=== PATIENT | female | born 1990 | race American Indian/Alaskan Native ===

== ENCOUNTER 2020-04-12 09:33 | Inpatient (IN) | payer MEDICAID, OTHER ==
[2020-04-12] MEDS ORDERED: SODIUM CHLORIDE 0.9% 1000 ML 1,000 ML IV ONE ×2 (11:22→14:34)
[2020-04-12] MEDS ORDERED: MORPHINE 4 MG/1 ML INJ IV ONE (11:22)
[2020-04-12] MEDS ORDERED: ONDANSETRON 4 MG/2 ML INJ IV ONE (11:22)
[2020-04-12 13:09] LABS: Basophils % (Auto) 0.2 % (0.0-1.8); Hematocrit 40.1 % (30.3-42.9); Hemoglobin 13.1 gm/dl (10.1-14.3); Lymphocytes # (Auto) 1.1 K/mm3 (1.2-5.4); Lymphocytes % (Auto) 10.1 % (13.4-35.0); Mean Corpuscular HGB Conc 33 % (30-34); Mean Corpuscular Volume 93 fl (79-97); Monocytes # (Auto) 0.4 K/mm3 (0.0-0.8); Monocytes % (Auto) 3.8 % (0.0-7.3); Platelet Count 275 K/mm3 (140-440); Red Cell Distribution Width 14.6 % (13.2-15.2)
[2020-04-12 14:21] LABS: Alanine Aminotransferase 25 units/L (7-56); Albumin 4.2 g/dL (3.9-5); Blood Urea Nitrogen 7 mg/dL (7-17); Calcium 9.6 mg/dL (8.4-10.2); Hemolysis Index 67
[2020-04-12 14:22] LABS: BUN/Creatinine Ratio 12
[2020-04-12] MEDS ORDERED: INSULIN REGULAR, HUMAN 100 UNIT/ML 3ML VIAL IV ONE ×2 (14:28→15:14)
[2020-04-12] MEDS ORDERED: HYDROmorphone 1 MG/1 ML INJ IV ONE ×3 (14:34→18:31)
--- NOTE | 2020-04-12 16:13 | Cat Scan Report ---
CT ABDOMEN AND PELVIS WITHOUT CONTRAST INDICATION / CLINICAL INFORMATION: abd pain, n/v. TECHNIQUE: Axial CT images were obtained through the abdomen and pelvis without IV contrast. All CT scans at [facility] location are performed using CT dose reduction for ALARA by means of automated exposure control. COMPARISON: None available. FINDINGS: LOWER CHEST: No significant abnormality. HEPATOBILIARY: No significant abnormality. PANCREAS: No significant abnormality. SPLEEN: 2.1 cm hypoattenuating focus with attenuation greater than expected for simple cyst. ADRENALS: No significant abnormality. GENITOURINARY: Contrast excretion from prior examination throughout the genitourinary system. No sign ificant abnormality. GASTROINTESTINAL/MESENTERY: Appendix is poorly visualized, however there is no significant pericecal inflammatory change to suggest acute appendicitis. Mild diffuse thickening of the proximal colon from the hepatic flexure to the mid transverse colon possibly representing mild colitis. No obstruction. No free air or significant free fluid. RETROPERITONEUM: No significant adenopathy. REPRODUCTIVE ORGANS: 3.3 cm cystic left adnexal lesion adjacent to the ovary with attenuation slightl y greater than expected for a simple cyst. VASCULAR: No significant abnormality. SKELETAL SYSTEM: No significant abnormality. ADDITIONAL FINDINGS: No significant abnormality. IMPRESSION: 1. Mild diffuse thickening of the proximal colon from the hepatic flexure to the mid transverse colon which can be seen in the setting of mild colitis. Recommend clinical correlation and further follow- up as warranted. 2. 2.1 cm hypoattenuating focus in the spleen which is slightly greater in attenuation than a simple cyst. Consider further evaluation with ultrasound. 3. 3.3 cm cystic left adnexal lesion with attenuation greater than expected for simple cyst. Recommen d further evaluation with pelvic ultrasound. Signer Name: Dragan Arguello MD Signed: 04/12/2020 4:08 PM Workstation Name: [id number]
[2020-04-12] MEDS ORDERED: metroNIDAZOLE/NS 500 MG/100 ML 500 MG/100 ML BAG IV ONE (16:33)
--- NOTE | 2020-04-12 16:45 | Emergency Department Report ---
ED Abdominal Pain HPI - General Chief Complaint: Abdominal Pain Stated Complaint: SHARP PAINS Time Seen by Provider: 04/12/20 11:10 Source: patient Mode of arrival: Ambulatory Limitations: Language Barrier - History of Present Illness Initial Comments: Patient is a 29-year-old female presents emergency room with complaints of lower abdominal pain that began yesterday. She states that she began to have constant nausea and vomiting earlier today. she states she is unable to tolerate PO intake. She denies any fever, diarrhea, dysuria, urinary symptoms, hematochezia, hematemesis, melena. She denies any sick contacts or recent travel. She states that she has a past medical history of endometriosis and type 1 diabetes. She states her last menstrual cycle was March 24. She denies any allergies to medications. Severity scale (0 -10): 5 - Related Data Allergies Allergy/AdvReac Type Severity Reaction Status Date / Time No Known Allergies Allergy Unverified 04/12/20 09:55 ED Review of Systems ROS: Stated complaint: SHARP PAINS Other details as noted in HPI Comment: All other systems reviewed and negative ED Past Medical Hx - Surgical History Hx Cholecystectomy: Yes Additional Surgical History: C SECTION/ HERNIA - Social History Smoking Status: Never Smoker Substance Use Type: Non Opiate Pain ED Physical Exam - General Limitations: Language Barrier General appearance: alert, in no apparent distress - Head Head exam: Present: atraumatic, normocephalic - Eye Eye exam: Present: normal appearance - ENT ENT exam: Present: mucous membranes moist - Respiratory Respiratory exam: Present: normal lung sounds bilaterally. Absent: respiratory distress, wheezes, rales, rhonchi, stridor, chest wall tenderness, accessory muscle use, decreased breath sounds, prolonged expiratory - Cardiovascular Cardiovascular Exam: Present: regular rate, normal rhythm, normal heart sounds. Absent: systolic murmur, diastolic murmur, rubs, gallop - GI/Abdominal GI/Abdominal exam: Present: soft, tenderness (lower abdominal generalized), no rmal bowel sounds. Absent: distended, guarding, rebound, rigid - Neurological Exam Neurological exam: Present: alert, oriented X3 - Psychiatric Psychiatric exam: Present: normal affect, normal mood - Skin Skin exam: Present: warm, dry, intact ED Course Vital Signs 04/12/20 04/12/20 04/12/20 09:44 11:59 16:00 Temperature 98.1 F 98.1 F Pulse Rate 122 H 86 Respiratory 20 18 16 Rate Blood Pressure 177/124 Blood Pressure 131/86 [Left] O2 Sat by Pulse 99 100 Oximetry - Consultations Consultation #1: 04/12/20 16:[address] Newton, hospitalist who will accept and resume care of patient, will admit patient to hospitalist service ED Medical Decision Making - Lab Data Result diagrams: 04/12/20 12:07 04/12/20 12:07 Lab Results 04/12/20 04/12/20 04/12/20 Range/Units 12:07 12:07 12:07 WBC 11.1 H (4.5-11.0) K/mm3 RBC 4.30 (3.65-5.03) M/mm3 Hgb 13.1 (10.1-14.3) gm/dl Hct 40.1 (30.3-42.9) % MCV 93 (79-97) fl MCH 31 (28-32) pg MCHC 33 (30-34) % RDW 14.6 (13.2-15.2) % Plt Count 275 (140-440) K/mm3 Lymph % (Auto) 10.1 L (13.4-35.0) % [place] % (Auto) 3.8 (0.0-7.3) % Eos % (Auto) 0.0 (0.0-4.3) % Baso % (Auto) 0.2 (0.0-1.8) % Lymph # 1.1 L (1.2-5.4) K/mm3 [place] # 0.4 (0.0-0.8) K/mm3 Eos # 0.0 (0.0-0.4) K/mm3 Baso # 0.0 (0.0-0.1) K/mm3 Seg Neutrophils % 85.9 H (40.0-70.0) % Seg Neutrophils # 9.5 H (1.8-7.7) K/mm3 VBG pH (7.320-7.420) Sodium 141 (137-145) mmol/L Potassium 4.5 (3.6-5.0) mmol/L Chloride 96.9 L (98-107) mmol/L Carbon Dioxide 18 L (22-30) mmol/L Anion Gap 31 mmol/L BUN 7 (7-17) mg/dL Creatinine 0.6 (0.6-1.2) mg/dL Estimated GFR > 60 ml/min BUN/Creatinine Ratio 12 % Glucose 392 H (65-100) mg/dL POC Glucose (70-105) Calcium 9.6 (8.4-10.2) mg/dL Total Bilirubin 0.60 (0.1-1.2) mg/dL AST 33 (5-40) units/L ALT 25 (7-56) units/L Alkaline Phosphatase 91 (35-129) units/L Total Protein 7.4 (6.3-8.2) g/dL Albumin 4.2 (3.9-5) g/dL Albumin/Globulin Ratio 1.3 % Lipase 12 L (13-60) units/L HCG, Qual Negative (Negative) 04/12/20 04/12/20 04/12/20 Range/Units 14:49 15:28 16:27 WBC (4.5-11.0) K/mm3 RBC (3.65-5.03) M/mm3 Hgb (10.1-14.3) gm/dl Hct (30.3-42.9) % MCV (79-97) fl MCH (28-32) pg MCHC (30-34) % RDW (13.2-15.2) % Plt Count (140-440) K/mm3 Lymph % (Auto) (13.4-35.0) % [place] % (Auto) (0.0-7.3) % Eos % (Auto) (0.0-4.3) % Baso % (Auto) (0.0-1.8) % Lymph # (1.2-5.4) K/mm3 [place] # (0.0-0.8) K/mm3 Eos # (0.0-0.4) K/mm3 Baso # (0.0-0.1) K/mm3 Seg Neutrophils % (40.0-70.0) % Seg Neutrophils # (1.8-7.7) K/mm3 VBG pH 7.273 L (7.320-7.420) Sodium (137-145) mmol/L Potassium (3.6-5.0) mmol/L Chloride (98-107) mmol/L Carbon Dioxide (22-30) mmol/L Anion Gap mmol/L BUN (7-17) mg/dL Creatinine (0.6-1.2) mg/dL Estimated GFR ml/min BUN/Creatinine Ratio % Glucose (65-100) mg/dL POC Glucose 359 H 278 H (70-105) Calcium (8.4-10.2) mg/dL Total Bilirubin (0.1-1.2) mg/dL AST (5-40) units/L ALT (7-56) units/L Alkaline Phosphatase (35-129) units/L Total Protein (6.3-8.2) g/dL Albumin (3.9-5) g/dL Albumin/Globulin Ratio % Lipase (13-60) units/L HCG, Qual (Negative) Vital Signs 04/12/20 04/12/20 04/12/20 09:44 11:59 16:00 Temperature 98.1 F 98.1 F Pulse Rate 122 H 86 Respiratory 20 18 16 Rate Blood Pressure 177/124 Blood Pressure 131/86 [Left] O2 Sat by Pulse 99 100 Oximetry - Radiology Data Radiology results: report reviewed CT ABDOMEN AND PELVIS WITHOUT CONTRAST INDICATION / CLINICAL INFORMATION: abd pain, n/v. TECHNIQUE: Axial CT images were obtained through the abdomen and pelvis without IV contrast. All CT scans at this location are performed using CT dose reduction for ALARA by means of automated exposure control. COMPARISON: None available. FINDINGS: LOWER CHEST: No significant abnormality. HEPATOBILIARY: No significant abnormality. PANCREAS: No significant abnormality. SPLEEN: 2.1 cm hypoattenuating focus with attenuation greater than expected for simple cyst. ADRENALS: No significant abnormality. GENITOURINARY: Contrast excretion from prior examination throughout the genitourinary system. No significant abnormality. GASTROINTESTINAL/MESENTERY: Appendix is poorly visualized, however there is no significant pericecal inflammatory change to suggest acute appendicitis. Mild diffuse thickening of the proximal colon from the hepatic flexure to the mid transverse colon possibly representing mild colitis. No obstruction. No free air or significant free fluid. RETROPERITONEUM: No significant adenopathy. REPRODUCTIVE ORGANS: 3.3 cm cystic left adnexal lesion adjacent to the ovary with attenuation slightly greater than expected for a simple cyst. VASCULAR: No significant abnormality. SKELETAL SYSTEM: No significant abnormality. ADDITIONAL FINDINGS: No significant abnormality. IMPRESSION: 1. Mild diffuse thickening of the proximal colon from the hepatic flexure to the mid transverse colon which can be seen in the setting of mild colitis. Recommend clinical correlation and further follow-up as warranted. 2. 2.1 cm hypoattenuating focus in the spleen which is slightly greater in attenuation than a simple cyst. Consider further evaluation with ultrasound. 3. 3.3 cm cystic left adnexal lesion with attenuation greater than expected for simple cyst. Recommend further evaluation with pelvic ultrasound. Signer Name: Yevgeniy Arguello MD Signed: 04/12/2020 4:08 PM Workstation Name: [id number] Transcribed By: Dictated By: YEVGENIY ARGUELLO III Electronically Authenticated By: YEVGENIY ARGUELLO III Signed Date/Time: 04/12/20 1608 DD/ 1549 TD/TT: ULTRASOUND PELVIS INDICATION: left adnexal mass on CT. TECHNIQUE: Transabdominal and Transvaginal. Duplex Color Doppler used: Yes. COMPARISON: CT abdomen and pelvis without contrast from earlier today. FINDINGS: Uterus: Present. Size: 1.2 x 3.8 x 5.8 cm. Endometrial complex: Normal measuring 0.8 cm. Mass lesions: None. Additional findings: None. Right Ovary: Size: 3.0 x 1.8 x 3.7 cm Blood flow: Normal. Cyst or mass: None. Left Ovary: Size: 4.2 x 2.9 x 4.5 cm Blood flow: Normal. Cyst or mass: A 2.9 x 2.2 x 2.3 cm septated cyst is present with internal echoes. No other solid or cystic lesions. Urinary Bladder: Normal. Free Fluid: None. Additional Findings: None. IMPRESSION: 1. No acute sonographic abnormality of the pelvis. 2. Left ovarian cyst as above is likely benign in a patient of this age. No follow-up imaging is indicated at this time. Signer Name: Sukh Valdez MD Signed: 04/12/2020 6:21 PM Workstation Name: [id number] Transcribed By: GINA Dictated By: Sukh Valdez MD Electronically Authenticated By: Sukh Valdez MD Signed Date/Time: 04/12/201820 DD/ 17 TD/TT: - Medical Decision Making Patient is a 29-year-old female presents emergency room with complaints of lower abdominal pain that began yesterday. She states that she began to have cons tant nausea and vomiting earlier today. she states she is unable to tolerate PO intake. She denies any fever, diarrhea, dysuria, urinary symptoms, hematochezia, hematemesis, melena. She denies any sick contacts or recent travel. She states that she has a past medical history of endometriosis and type 1 diabetes. She states her last menstrual cycle was March 24. She denies any allergies to medi cations. labs significant for Blood glucose of 392, anion gap 31, co2 18, nhan PH 7.27. nurse was able to get a EJ, unable to use contrast through EJ, discussed with Dr Richards who recommended to do without contrast. CT abd pelvis without contrast: 1. Mild diffuse thickening of the proximal colon from the hepatic flexure to the mid transverse colon which can be seen in the setting of mild colitis. Recommend clinical correlation and further follow-up as warranted. 2. 2.1 cm hypoattenuating focus in the spleen which is slightly greater in attenuation than a simple cyst. Consider further evaluation with ultrasound. 3. 3.3 cm cystic left adnexal lesion with attenuation greater than expected for simple cyst. Recommend further evaluation with pelvic ultrasound. pelvic US: 1. No acute sonographic abnormality of the pelvis. 2. Left ovarian cyst as above is likely benign in a patient of this age. No follow-up imaging is indicated at this time. discussed case with Dr. Richards ER attending who recommended admission for DKA, does not recommend insulin drip at this time. pt given 2L of IVF, pain medication, antiemetic, IV insulin. BG improved to 278. Spoke with Dr. Newton, hospitalist who will accept and resume care of patient, will admit patient to hospitalist service Critical care attestation.: If time is entered above; I have spent that time in minutes in the direct care of this critically ill patient, excluding procedure time. ED Disposition Clinical Impression: Colitis, Splenic mass, Left ovarian cyst Abdominal pain Qualifiers: Abdominal location: lower abdomen, unspecified Qualified Code(s): R10.30 - Lower abdominal pain, unspecified Nausea & vomiting Qualifiers: Vomiting type: unspecified Vomiting Intractability: non-intractable Qualified Code(s): R11.2 - Nausea with vomiting, unspecified DKA (diabetic ketoacidoses) Qualifiers: Diabetes mellitus type: type 1 Diabetes mellitus complication detail: without coma Qualified Code(s): E10.10 - Type 1 diabetes mellitus with ketoacidosis without coma Disposition: DC-09 OP ADMIT IP TO THIS HOSP Is pt being admited?: Yes Does the pt Need Aspirin: No Condition: Serious Instructions: Diabetic Ketoacidosis (ED), Abdominal Pain (ED) Referrals: PRIMARY CARE,MD [Primary Care Provider] - 2-3 Days
--- NOTE | 2020-04-12 18:26 | Ultrasound Report ---
ULTRASOUND PELVIS INDICATION: left adnexal mass on CT. TECHNIQUE: Transabdominal and Transvaginal. Duplex Color Doppler used: Yes. COMPARISON: CT abdomen and pelvis without contrast from earlier today. FINDINGS: Uterus: Present. Size: 1.2 x 3.8 x 5.8 cm. Endometrial complex: Normal measuring 0.8 cm. Mass lesions: None. Additional findings: None. Right Ovary: Size: 3.0 x 1.8 x 3.7 cm Blood flow: Normal. Cyst or mass: None. Left Ovary: Size: 4.2 x 2.9 x 4.5 cm Blood flow: Normal. Cyst or mass: A 2.9 x 2.2 x 2.3 cm septated cyst is present with internal echoes. No other solid or c ystic lesions. Urinary Bladder: Normal. Free Fluid: None. Additional Findings: None. IMPRESSION: 1. No acute sonographic abnormality of the pelvis. 2. Left ovarian cyst as above is likely benign in a patient of this age. No follow-up imaging is kevyn cated at this time. Signer Name: Sukh Valdez MD Signed: 04/12/2020 6:21 PM Workstation Name: [id number]
[2020-04-12] MEDS ORDERED: ACETAMINOPHEN 325 MG TAB PO PRN (19:35)
[2020-04-12] MEDS ORDERED: METOCLOPRAMIDE 10 MG/2 ML INJ IV PRN (19:35)
[2020-04-12] MEDS ORDERED: oxyCODONE /ACETAMINOPHEN 5-325MG TAB PO PRN (19:35)
[2020-04-12] MEDS ORDERED: ONDANSETRON 4 MG/2 ML INJ IV PRN (19:35)
[2020-04-12] MEDS ORDERED: INSULIN LISPRO 100 UNIT/ML VIAL 3 mL SUB-Q ONE (19:40)
[2020-04-12] MEDS ORDERED: SODIUM CHLORIDE 0.9% 1000 ML 1,000 ML IV SCH (19:45)
[2020-04-12] MEDS ORDERED: HYDROmorphone 1 MG/1 ML INJ ONE (20:08)
[2020-04-12] MEDS: HYDROmorphone 1 MG/1 ML INJ IV PRN ×2 (20:10→22:33)
[2020-04-12 21:31] LABS: Bacteria,Urine 1+ /HPF (Negative); Bilirubin,Urine NEG (Negative); Blood,Urine NEG (Negative); Color,Urine Yellow (Yellow); Mucus,Urine 3+ /HPF; Protein,Urine <15 mg/dL mg/dL (Negative); Urobilinogen,Urine < 2.0 mg/dL (<2.0)
[2020-04-12] MEDS: HEPARIN 5,000 UNIT/1 ML VIAL SUB-Q SCH (22:34)
[2020-04-13] MEDS ORDERED: DEXTROSE 50% IN WATER (25GM) 50 ML SYRINGE IV PRN (00:32)
--- NOTE | 2020-04-13 00:42 | Event Note ---
Date: 04/13/20 PATIENT IN DKA AND NOT ON INSULIN DRIP PLAN ; TRANSFER TO ICU ON DKA PROTOCOL
[2020-04-13] MEDS ORDERED: INSULIN REGULAR, HUMAN 100 UNITS in SODIUM CHLORIDE 0.9% 99 ML IV SCH (01:00)
[2020-04-13 01:57] LABS: Blood Urea Nitrogen 8 mg/dL (7-17); Calcium 8.5 mg/dL (8.4-10.2); Hemolysis Index 13
[2020-04-13 02:34] LABS: BUN/Creatinine Ratio 13
[2020-04-13] MEDS: HYDROmorphone 1 MG/1 ML INJ IV PRN ×6 (02:38→23:21)
[2020-04-13 04:25] LABS: Hematocrit 40.3 % (30.3-42.9); Hemoglobin 12.5 gm/dl (10.1-14.3); Mean Corpuscular HGB Conc 31 % (30-34); Mean Corpuscular Volume 100 fl (79-97); Platelet Count 217 K/mm3 (140-440); Red Blood Count 4.04 M/mm3 (3.65-5.03)
[2020-04-13 04:35] LABS: Alanine Aminotransferase 19 units/L (7-56); Albumin 3.3 g/dL (3.9-5); Blood Urea Nitrogen 9 mg/dL (7-17); Calcium 8.3 mg/dL (8.4-10.2); Hemolysis Index 31
[2020-04-13 04:39] LABS: Blood Urea Nitrogen 9 mg/dL (7-17); Calcium 8.5 mg/dL (8.4-10.2); Hemolysis Index 79
[2020-04-13 04:42] LABS: BUN/Creatinine Ratio 15
[2020-04-13 04:43] LABS: BUN/Creatinine Ratio 15
[2020-04-13] MEDS: D5W/0.45% NACL 1,000 ML IV SCH ×2 (05:02→20:23)
[2020-04-13] MEDS ORDERED: SODIUM CHLORIDE 0.9% 1000 ML 1,000 ML IV SCH (07:37)
--- NOTE | 2020-04-13 09:02 | Consultation ---
History of Present Illness - Reason for Consult Consult date: 04/13/20 DKA - History of Present Illness 29 y/o female with known Diabetes, endometriosis and known diagnosis of colitis prior to admission, admitted with DKA but abdominal pain is what brought her to the hospital. She is compliant with her insulin regiment but secondary to pain she has neglected treating diabetes. She was also recently diagnosed with the colitis that was seen on the CT done here. Patient has endometriosis, that is severe and has an appointment with OBGYN for possible hormone therapy. She is awake and alert but in significant discomfort and she is hungry. Remainder is negative. Past History Past Medical History: diabetes, other (endometriosis) Past Surgical History: Other (prior C-sections and pregnancies) Social history: other (sister with endometriosis) Medications and Allergies Allergies Allergy/AdvReac Type Severity Reaction Status Date / Time No Known Allergies Allergy Unverified 04/12/20 09:55 Home Medications Medication Instructions Recorded Confirmed Last Taken Type HumaLOG 12 units SUB-Q HS 04/12/20 04/12/20 Unknown History Lantus VIAL 04/12/20 Unknown History Active Meds: Active Medications Dextrose (D50w (25gm) Syringe) 0 ml IV Q30MIN PRN; Protocol PRN Reason: Hypoglycemia Heparin Sodium (Porcine) (Heparin) 5,000 unit SUB-Q Q12HR JONY Last Admin: 04/12/20 22:34 Dose: Not Given Documented by: Hydromorphone HCl (Dilaudid) 0.5 mg IV Q3H PRN PRN Reason: Pain , Severe (7-10) Last Admin: 04/13/20 08:16 Dose: 0.5 mg Documented by: Sodium Chloride (Nacl 0.9% 1000 Ml) 1,000 mls @ 125 mls/hr IV DIRECT JONY Last Admin: 04/12/20 22:34 Dose: 125 mls/hr Documented by: Insulin Human Regular 100 (units/ Sodium Chloride) 100 mls @ 1 mls/hr IV TITR JONY; Protocol Last Titration: 04/13/20 08:12 Dose: 1 units/hr, 1 mls/hr Documented by: Dextrose/Sodium Chloride (D5/0.45ns) 1,000 mls @ 125 mls/hr IV DIRECT JONY Last Admin: 04/13/20 05:02 Dose: 125 mls/hr Documented by: Sodium Chloride (Nacl 0.9% 1000 Ml) 1,000 mls @ 200 mls/hr IV DIRECT JONY Levofloxacin/Dextrose (Levaquin 500mg/100ml) 500 mg in 100 mls @ 100 mls/hr IV Q24HR JONY; Protocol Metronidazole (Flagyl 500 Mg/100 Ml) 500 mg in 100 mls @ 100 mls/hr IV Q8HR JONY; Protocol Ketorolac Tromethamine (Toradol) 15 mg IV Q6H PRN PRN Reason: Pain, Mild (1-3) Stop: 04/18/20 08:56 Metoclopramide HCl (Reglan) 10 mg IV Q6H PRN PRN Reason: Nausea And Vomiting Ondansetron HCl (Zofran) 4 mg IV Q8H PRN PRN Reason: Nausea And Vomiting Sodium Chloride (Sodium Chloride Flush Syringe 10 Ml) 10 ml IV BID JONY Last Admin: 04/12/20 22:43 Dose: 10 ml Documented by: Sodium Chloride (Sodium Chloride Flush Syringe 10 Ml) 10 ml IV PRN PRN PRN Reason: LINE FLUSH Review of Systems Constitutional: fatigue, malaise Gastrointestinal: abdominal pain Exam - Constitutional Vitals: Temp Pulse Resp BP Pulse Ox 98.4 F 92 H 17 129/90 100 04/13/20 08:00 04/13/20 06:20 04/13/20 08:16 04/13/20 06:20 04/13/20 06:20 General appearance: Present: mild distress, well-nourished - EENT Eyes: Present: PERRL, EOM intact ENT: hearing intact, clear oral mucosa, dentition normal - Neck Neck: Present: supple, normal ROM - Respiratory Respiratory effort: normal Respiratory: bilateral: CTA - Cardiovascular Rhythm: regular Heart Sounds: Present: S1 & S2 - Extremities Extremities: No edema - Abdominal General gastrointestinal: Present: soft, tender Results - Labs CBC & Chem 7: 04/13/20 03:12 04/13/20 03:12 Labs: Abnormal lab results 04/12/20 04/12/20 04/12/20 Range/Units 12:07 12:07 12:07 WBC 11.1 H (4.5-11.0) K/mm3 MCV (79-97) fl Lymph % (Auto) 10.1 L (13.4-35.0) % Lymph # 1.1 L (1.2-5.4) K/mm3 Seg Neutrophils % 85.9 H (40.0-70.0) % Seg Neutrophils # 9.5 H (1.8-7.7) K/mm3 VBG pH (7.320-7.420) Sodium (137-145) mmol/L Chloride 96.9 L (98-107) mmol/L Carbon Dioxide 18 L (22-30) mmol/L Glucose 392 H (65-100) mg/dL POC Glucose (70-105) Hemoglobin A1c 6.8 H (4-6) % Calcium (8.4-10.2) mg/dL Total Protein (6.3-8.2) g/dL Albumin (3.9-5) g/dL Lipase 12 L (13-60) units/L 04/12/20 04/12/20 04/12/20 Range/Units 14:49 15:28 16:27 WBC (4.5-11.0) K/mm3 MCV (79-97) fl Lymph % (Auto) (13.4-35.0) % Lymph # (1.2-5.4) K/mm3 Seg Neutrophils % (40.0-70.0) % Seg Neutrophils # (1.8-7.7) K/mm3 VBG pH 7.273 L (7.320-7.420) Sodium (137-145) mmol/L Chloride (98-107) mmol/L Carbon Dioxide (22-30) mmol/L Glucose (65-100) mg/dL POC Glucose 359 H 278 H (70-105) Hemoglobin A1c (4-6) % Calcium (8.4-10.2) mg/dL Total Protein (6.3-8.2) g/dL Albumin (3.9-5) g/dL Lipase (13-60) units/L 04/13/20 04/13/20 04/13/20 Range/Units 00:54 01:26 03:12 WBC (4.5-11.0) K/mm3 MCV 100 H (79-97) fl Lymph % (Auto) (13.4-35.0) % Lymph # (1.2-5.4) K/mm3 Seg Neutrophils % (40.0-70.0) % Seg Neutrophils # (1.8-7.7) K/mm3 VBG pH (7.320-7.420) Sodium 134 L (137-145) mmol/L Chloride 95.5 L (98-107) mmol/L Carbon Dioxide 19 L (22-30) mmol/L Glucose 435 H (65-100) mg/dL POC Glucose 380 H (70-105) Hemoglobin A1c (4-6) % Calcium (8.4-10.2) mg/dL Total Protein (6.3-8.2) g/dL Albumin (3.9-5) g/dL Lipase (13-60) units/L 04/13/20 04/13/20 04/13/20 Range/Units 03:12 03:12 03:55 WBC (4.5-11.0) K/mm3 MCV (79-97) fl Lymph % (Auto) (13.4-35.0) % Lymph # (1.2-5.4) K/mm3 Seg Neutrophils % (40.0-70.0) % Seg Neutrophils # (1.8-7.7) K/mm3 VBG pH (7.320-7.420) Sodium 135 L 134 L (137-145) mmol/L Chloride 97.1 L (98-107) mmol/L Carbon Dioxide 15 L 12 L (22-30) mmol/L Glucose 387 H 378 H (65-100) mg/dL POC Glucose 322 H (70-105) Hemoglobin A1c (4-6) % Calcium 8.3 L (8.4-10.2) mg/dL Total Protein 6.0 L (6.3-8.2) g/dL Albumin 3.3 L (3.9-5) g/dL Lipase (13-60) units/L 04/13/20 04/13/20 04/13/20 Range/Units 05:01 06:34 08:24 WBC (4.5-11.0) K/mm3 MCV (79-97) fl Lymph % (Auto) (13.4-35.0) % Lymph # (1.2-5.4) K/mm3 Seg Neutrophils % (40.0-70.0) % Seg Neutrophils # (1.8-7.7) K/mm3 VBG pH (7.320-7.420) Sodium (137-145) mmol/L Chloride (98-107) mmol/L Carbon Dioxide (22-30) mmol/L Glucose (65-100) mg/dL POC Glucose 227 H 191 H 113 H (70-105) Hemoglobin A1c (4-6) % Calcium (8.4-10.2) mg/dL Total Protein (6.3-8.2) g/dL Albumin (3.9-5) g/dL Lipase (13-60) units/L - Imaging and Cardiology CT scan - abdomen: report reviewed CT scan - pelvis: report reviewed Assessment and Plan 29 y/o female with DKA, but secondary to multifactorial issues including endometriosis and colitis. 1. Started back the flagyl, agree with levaquin 2. Added IV toradol to help with pain as well 3. Currently on D5 1/2 as last sugar was 191, GAP is still elevated. Will eat once closed 4. Will calculate insulin needs once GAP has closed 5. Pain control 6. q6hour BMP's 7. COntinue ICU care. CCt 31 minutes.
[2020-04-13 09:05] LABS: BUN/Creatinine Ratio 16; Blood Urea Nitrogen 8 mg/dL (7-17); Calcium 8.4 mg/dL (8.4-10.2); Hemolysis Index 44
[2020-04-13] MEDS: HEPARIN 5,000 UNIT/1 ML VIAL SUB-Q SCH ×2 (10:51→23:00)
[2020-04-13] MEDS: metroNIDAZOLE/NS 500 MG/100 ML 500 MG/100 ML BAG IV SCH ×2 (14:33→23:00)
--- NOTE | 2020-04-13 16:18 | History and Physical Report ---
History of Present Illness Date of examination: 04/12/20 Date of admission: 04/13/20 14:28 Chief complaint: Lower abdominal pain nausea and vomiting for 1 day. 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 Intermittent in nature. Colicky nature. No diarrhea. Also lower abdominal pain. Patient also had nausea and vomiting vomiting x2. No fever. No diarrhea. No exposure to coronavirus. Patient says that she is compliant with insulin but has not been compliant because of the not eating and being in abdominal pain. Past History Past Medical History: diabetes, other (endometriosis nd colitis) Past Surgical History: No surgical history, Other (prior C-sections and pregnancies) Social history: lives with family, full code, other (sister with endometriosis) Family history: hypertension Medications and Allergies Allergies Allergy/AdvReac Type Severity Reaction Status Date / Time No Known Allergies Allergy Unverified 04/12/20 09:55 Home Medications Medication Instructions Recorded Confirmed Last Taken Type HumaLOG 12 units SUB-Q HS 04/12/20 04/12/20 Unknown History Lantus VIAL See Protocol SQ QHS 04/12/20 04/14/20 Unknown History Active Meds: Active Medications Dextrose (D50w (25gm) Syringe) 0 ml IV Q30MIN PRN; Protocol PRN Reason: Hypoglycemia Heparin Sodium (Porcine) (Heparin) 5,000 unit SUB-Q Q12HR JONY Last Admin: 04/13/20 10:51 Dose: Not Given Documented by: Hydromorphone HCl (Dilaudid) 0.5 mg IV Q3H PRN PRN Reason: Pain , Severe (7-10) Last Admin: 04/13/20 12:30 Dose: 0.5 mg Documented by: Sodium Chloride (Nacl 0.9% 1000 Ml) 1,000 mls @ 125 mls/hr IV DIRECT JONY Last Admin: 04/12/20 22:34 Dose: 125 mls/hr Documented by: Insulin Human Regular 100 (units/ Sodium Chloride) 100 mls @ 1 mls/hr IV TITR JONY; Protocol Last Titration: 04/13/20 13:39 Dose: 4 units/hr, 4 mls/hr Documented by: Dextrose/Sodium Chloride (D5/0.45ns) 1,000 mls @ 125 mls/hr IV DIRECT JONY Last Admin: 04/13/20 05:02 Dose: 125 mls/hr Documented by: Sodium Chloride (Nacl 0.9% 1000 Ml) 1,000 mls @ 200 mls/hr IV DIRECT JONY Levofloxacin/Dextrose (Levaquin 500mg/100ml) 500 mg in 100 mls @ 100 mls/hr IV Q24HR JONY; Protocol Last Admin: 04/13/20 10:50 Dose: 100 mls/hr Documented by: Metronidazole (Flagyl 500 Mg/100 Ml) 500 mg in 100 mls @ 100 mls/hr IV Q8HR JONY; Protocol Last Admin: 04/13/20 14:33 Dose: 100 mls/hr Documented by: Insulin Glargine (Lantus) 12 units SUB-Q QHS JONY Insulin Human Regular (Humulin R) 0 unit SUB-Q ACHS JONY; Protocol Ketorolac Tromethamine (Toradol) 15 mg IV Q6H PRN PRN Reason: Pain, Mild (1-3) Stop: 04/18/20 08:56 Metoclopramide HCl (Reglan) 10 mg IV Q6H PRN PRN Reason: Nausea And Vomiting Ondansetron HCl (Zofran) 4 mg IV Q8H PRN PRN Reason: Nausea And Vomiting Sodium Chloride (Sodium Chloride Flush Syringe 10 Ml) 10 ml IV BID [facility] Last Admin: 04/13/20 10:51 Dose: 10 ml Documented by: Sodium Chloride (Sodium Chloride Flush Syringe 10 Ml) 10 ml IV PRN PRN PRN Reason: LINE FLUSH Review of Systems All systems: negative Constitutional: no weight loss, no weight gain, no fever, no chills, no sweats, no night sweats Ears, nose, mouth and throat: no ear pain, no ear discharge, no tinnitis, no decreased hearing, no nose pain, no nasal congestion, no nasal discharge, no sinus pressure, no sinus pain Breasts: deferred Cardiovascular: no chest pain, no orthopnea, no palpitations, no rapid/irregular heart beat, no edema, no syncope, no lightheadedness, no shortness of breath Respiratory: no cough, no cough with sputum, no excessive sputum, no hemoptysis, no shortness of breath, no dyspnea on exertion Gastrointestinal: abdominal pain, nausea, vomiting, no diarrhea, no constipation, no change in bowel habits, no hematemesis, no coffee ground emesis Genitourinary Female: no dyspareunia, no dysmenorrhea, no pelvic pain, no flank pain, no menorrhagia, no dysuria, no urinary frequency, no urgency Menstruation: currently menstrual Rectal: no pain Musculoskeletal: no neck stiffness, no neck pain, no shooting arm pain, no arm numbness/tingling, no low back pain, no shooting leg pain, no leg numbness/ti ngling, no redness of joints Integumentary: no rash, no pruritis, no redness, no sores, no wounds, no jaundice, no boils, no blisters Neurological: no head injury, no transient paralysis, no paralysis, no weakness, no parathesias, no numbness, no tingling, no seizures, no syncope, no tremors, no ataxia, no lack of coordination Psychiatric: no anxiety, no memory loss, no change in sleep habits, no sleep disturbances, no insomnia, no hypersomnia, no change in appetite, no change in libido, no suicidal ideation, no disorientation, no hallucinations Endocrine: no cold intolerance, no heat intolerance, no polyphagia, no excessive thirst Hematologic/Lymphatic: no easy bruising, no easy bleeding Allergic/Immunologic: no urticaria, no allergic rhinitis, no wheezing Exam - Constitutional Vitals: Temp Pulse Resp BP Pulse Ox 98.4 F 85 22 118/84 100 04/13/20 08:00 04/13/20 16:00 04/13/20 16:00 04/13/20 16:04/13/20 15:00 General appearance: Present: no acute distress, well-nourished - EENT Eyes: Present: PERRL ENT: hearing intact, clear oral mucosa, other (Dry mucous membranes) - Neck Neck: Present: supple, normal ROM, other - Respiratory Respiratory effort: normal Respiratory: bilateral: CTA - Cardiovascular Heart Sounds: Present: S1 & S2. Absent: rub, click - Extremities Extremities: pulses symmetrical, No edema Peripheral Pulses: within normal limits - Abdominal General gastrointestinal: Present: soft, non-tender, non-distended, normal bowel sounds Female genitourinary: Present: normal - Integumentary Integumentary: Present: clear, warm, dry - Musculoskeletal Musculoskeletal: gait normal, strength equal bilaterally - Psychiatric Psychiatric: appropriate mood/affect, intact judgment & insight - Neurologic Neurologic: CNII-XII intact, moves all extremities Results - Labs CBC & Chem 7: 04/13/20 03:12 04/14/20 04:10 Labs: Laboratory Last Values WBC 9.1 K/mm3 (4.5-11.0) 04/13/20 03:12 RBC 4.04 M/mm3 (3.65-5.03) 04/13/20 03:12 Hgb 12.5 gm/dl (10.1-14.3) 04/13/20 03:12 Hct 40.3 % (30.3-42.9) 04/13/20 03:12 MCV 100 fl (79-97) H 04/13/20 03:12 MCH 31 pg (28-32) 04/13/20 03:12 MCHC 31 % (30-34) 04/13/20 03:12 RDW 15.0 % (13.2-15.2) 04/13/20 03:12 Plt Count 217 K/mm3 (140-440) 04/13/20 03:12 Lymph % (Auto) [employer] 04/13/20 03:12 [place] % (Auto) [employer]ionics Systems Technician 04/13/20 03:12 Eos % (Auto) [employer]ionics Systems Technician 04/13/20 03:12 Baso % (Auto) [employer]ics Systems Technician 04/13/20 03:12 Lymph # [employer]ics Systems Technician 04/13/20 03:12 Dupage # [employer]ionics Systems Technician 04/13/20 03:12 Eos # [employer]ionics Systems Technician 04/13/20 03:12 Baso # [employer]ionics Systems Technician 04/13/20 03:12 Seg Neutrophils % [employer] Systems Technician 04/13/20 03:12 Seg Neutrophils # [employer] Systems Technician 04/13/20 03:12 VBG pH 7.273 (7.320-7.420) L 04/12/20 14:49 Sodium 136 mmol/L (137-145) L 04/13/20 07:43 Potassium 3.7 mmol/L (3.6-5.0) 04/13/20 07:43 Chloride 100.9 mmol/L (98-107) 04/13/20 07:43 Carbon Dioxide 22 mmol/L (22-30) D 04/13/20 07:43 Anion Gap 17 mmol/L 04/13/20 07:43 BUN 8 mg/dL (7-17) 04/13/20 07:43 Creatinine 0.5 mg/dL (0.6-1.2) L 04/13/20 07:43 Estimated GFR > 60 ml/min 04/13/20 07:43 BUN/Creatinine Ratio 16 % 04/13/20 07:43 Glucose 106 mg/dL (65-100) H 04/13/20 07:43 POC Glucose 113 (70-105) H 04/13/20 08:24 Hemoglobin A1c 6.8 % (4-6) H 04/12/20 12:07 Calcium 8.4 mg/dL (8.4-10.2) 04/13/20 07:43 Phosphorus 2.90 mg/dL (2.5-4.5) 04/13/20 01:26 Magnesium 1.70 mg/dL (1.7-2.3) 04/13/20 01:26 Total Bilirubin 0.60 mg/dL (0.1-1.2) 04/13/20 03:12 AST 18 units/L (5-40) 04/13/20 03:12 ALT 19 units/L (7-56) 04/13/20 03:12 Alkaline Phosphatase 78 units/L (35-129) 04/13/20 03:12 Total Protein 6.0 g/dL (6.3-8.2) L 04/13/20 03:12 Albumin 3.3 g/dL (3.9-5) L 04/13/20 03:12 Albumin/Globulin Ratio 1.2 % 04/13/20 03:12 Lipase 12 units/L (13-60) L 04/12/20 12:07 HCG, Qual Negative (Negative) 04/12/20 12:07 Urine Color Yellow (Yellow) 04/12/20 Unknown Urine Turbidity Clear (Clear) 04/12/20 Unknown Urine pH 6.0 (5.0-7.0) 04/12/20 Unknown Ur Specific [place] 1.029 (1.003-1.030) 04/12/20 Unknown Urine Protein <15 mg/dl mg/dL (Negative) 04/12/20 Unknown Urine Glucose (UA) >=500 mg/dL (Negative) 04/12/20 Unknown Urine Ketones 80 mg/dL (Negative) 04/12/20 Unknown Urine Blood Neg (Negative) 04/12/20 Unknown Urine Nitrite Neg (Negative) 04/12/20 Unknown Urine Bilirubin Neg (Negative) 04/12/20 Unknown Urine Urobilinogen < 2.0 mg/dL (<2.0) 04/12/20 Unknown Ur Leukocyte Esterase Neg (Negative) 04/12/20 Unknown Urine WBC (Auto) 2.0 /HPF (0.0-6.0) 04/12/20 Unknown Urine RBC (Auto) 4.0 /HPF (0.0-6.0) 04/12/20 Unknown U Epithel Cells (Auto) 5.0 /HPF (0-13.0) 04/12/20 Unknown Urine Bacteria (Auto) 1+ /HPF (Negative) 04/12/20 Unknown Urine Mucus 3+ /HPF 04/12/20 Unknown BMP 04/14/20 04:10 Sodium 133 L Potassium 4.3 Chloride 97.4 L Carbon Dioxide 22 BUN 7 Creatinine 0.8 D Glucose 374 H Calcium 8.2 L - Imaging and Cardiology Imaging and Cardiology: CT abdomen/pelvis IMPRESSION: 1. Mild diffuse thickening of the proximal colon from the hepatic flexure to the mid transverse colon which can be seen in the setting of mild colitis. Recommend clinical correlation and further follow-up as warranted. 2. 2.1 cm hypoattenuating focus in the spleen which is slightly greater in attenuation than a simple cyst. Consider further evaluation with ultrasound. 3. 3.3 cm cystic left adnexal lesion with attenuation greater than expected for simple cyst. Recommend further evaluation with pelvic ultrasound. Abdominal ultrasound Left Ovary: Size: 4.2 x 2.9 x 4.5 cm Blood flow: Normal. Cyst or mass: A 2.9 x 2.2 x 2.3 cm septated cyst is present with internal echoes. No other solid or cystic lesions. Urinary Bladder: Normal. Free Fluid: None. Additional Findings: None. IMPRESSION: 1. No acute sonographic abnormality of the pelvis. 2. Left ovarian cyst as above is likely benign in a patient of this age. No follow-up imaging is indicated at this time. Signer Name: Sukh Valdez MD Signed: 04/12/2020 6:21 PM Workstation Name: [employer] Transvaginal ultrasound IMPRESSION: 1. No acute sonographic abnormality of the pelvis. 2. Left ovarian cyst as above is likely benign in a patient of this age. No follow-up imaging is indicated at this time. Anna/IV: IV Catheter Type [Left Upper Mid-line arm] IV Catheter Type [Left INT / Saline Lock External Jugular] Assessment and Plan Advance Directives: Yes (Full code) VTE prophylaxis?: Chemical Plan of care discussed with patient/family: Yes - Patient Problems (1) DKA (diabetic ketoacidoses) Current Visit: Yes Status: Acute Qualifiers: Diabetes mellitus type: type 1 Diabetes mellitus complication detail: without coma Qualified Code(s): E10.10 - Type 1 diabetes mellitus with ketoacidosis without coma Plan to address problem: IV insulin drip and DKA protocol (2) Colitis Current Visit: Yes Status: Acute Plan to address problem: Mild Flagyl 3 times daily for 1 week (3) Left ovarian cyst Current Visit: Yes Status: Chronic Plan to address problem: Observation Follow-up with D[employer]SE CEMENTER (4) DVT prophylaxis Current Visit: Yes Status: Acute Plan to address problem: On heparin and GI prophylaxis
[2020-04-13] MEDS: INSULIN REGULAR, HUMAN 100 UNIT/ML 3ML VIAL SUB-Q SCH ×2 (20:08→22:45)
[2020-04-13] MEDS: KETOROLAC 30 MG/1 ML INJ IV PRN (20:20)
--- NOTE | 2020-04-13 21:48 | Progress Note ---
Assessment and Plan - Patient Problems (1) DKA (diabetic ketoacidoses) Current Visit: Yes Status: Acute Qualifiers: Diabetes mellitus type: type 1 Diabetes mellitus complication detail: without coma Qualified Code(s): E10.10 - Type 1 diabetes mellitus with ketoacidosis without coma Plan to address problem: IV insulin drip and DKA protocol (2) Colitis Current Visit: Yes Status: Acute Plan to address problem: Mild Flagyl 3 times daily for 1 week (3) Left ovarian cyst Current Visit: Yes Status: Chronic Plan to address problem: Observation Follow-up with [employer]CEMENT COLLECTION AGENT (4) DVT prophylaxis Current Visit: Yes Status: Acute Plan to address problem: On heparin and GI prophylaxis Subjective Date of service: 04/13/20 Principal diagnosis: DKA Interval history: 29-year-old -Citizen Of [place] female with history of 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 Intermittent in nature. Colicky nature. No diarrhea. Also lower abdominal pain. Patient also had nausea and vomiting vomiting x2. No fever. No diarrhea. No exposure to coronavirus. Patient says that she is compliant with insulin but has not been compliant because of the not eating and being in abdominal pain. Objective - Constitutional Vitals: Vital Signs - 12hr 04/13/20 04/13/20 04/13/20 09:50 10:00 10:10 Temperature Pulse Rate 82 90 84 Respiratory 14 14 12 Rate Respiratory 14 Rate [Abdomen] Blood Pressure 135/96 135/96 135/96 O2 Sat by Pulse 100 100 100 Oximetry 04/13/20 04/13/20 04/13/20 10:20 10:30 10:40 Temperature Pulse Rate 84 87 86 Respiratory 10 L 14 18 Rate Respiratory Rate [Abdomen] Blood Pressure 135/96 135/96 135/96 O2 Sat by Pulse 100 100 100 Oximetry 04/13/20 04/13/20 04/13/20 10:50 11:00 11:58 Temperature Pulse Rate 92 H 88 Respiratory 10 L 12 Rate Respiratory Rate [Abdomen] Blood Pressure 135/96 125/85 125/85 O2 Sat by Pulse 100 Oximetry 04/13/20 04/13/20 04/13/20 12:01 12:20 12:30 Temperature Pulse Rate 88 Respiratory 12 Rate Respiratory Rate [Abdomen] Blood Pressure 125/85 125/85 134/92 O2 Sat by Pulse 89 100 Oximetry 04/13/20 04/13/20 04/13/20 12:40 12:50 13:00 Temperature Pulse Rate 91 H 92 H 89 Respiratory 14 18 18 Rate Respiratory Rate [Abdomen] Blood Pressure 134/92 134/92 125/87 O2 Sat by Pulse 100 100 Oximetry 04/13/20 04/13/20 04/13/20 13:10 13:20 13:30 Temperature Pulse Rate 94 H 96 H 98 H Respiratory 16 19 15 Rate Respiratory Rate [Abdomen] Blood Pressure 125/87 125/87 125/87 O2 Sat by Pulse 88 99 100 Oximetry 04/13/20 04/13/20 04/13/20 13:40 13:50 14:00 Temperature Pulse Rate 90 94 H 90 Respiratory 15 16 15 Rate Respiratory Rate [Abdomen] Blood Pressure 125/87 125/87 122/83 O2 Sat by Pulse 100 100 Oximetry 04/13/20 04/13/20 04/13/20 14:30 15:00 15:30 Temperature Pulse Rate 90 92 H 102 H Respiratory 18 15 12 Rate Respiratory Rate [Abdomen] Blood Pressure 125/87 118/84 118/84 O2 Sat by Pulse 100 100 Oximetry 04/13/20 04/13/20 04/13/20 16:00 16:30 17:00 Temperature 99.1 F Pulse Rate 85 101 H 85 Respiratory 22 12 17 Rate Respiratory Rate [Abdomen] Blood Pressure 118/84 118/84 118/84 O2 Sat by Pulse Oximetry 04/13/20 04/13/20 04/13/20 17:08 17:30 18:00 Temperature Pulse Rate 87 88 Respiratory 15 18 17 Rate Respiratory Rate [Abdomen] Blood Pressure 118/84 118/84 O2 Sat by Pulse Oximetry 04/13/20 04/13/20 04/13/20 19:00 19:30 20:00 Temperature 98.3 F Pulse Rate 93 H 94 H Respiratory 20 15 Rate Respiratory Rate [Abdomen] Blood Pressure 118/84 118/84 O2 Sat by Pulse Oximetry 04/13/20 04/13/20 04/13/20 20:17 20:18 20:20 Temperature Pulse Rate 94 H Respiratory 20 18 20 Rate Respiratory Rate [Abdomen] Blood Pressure 118/84 O2 Sat by Pulse Oximetry 04/13/20 20:30 Temperature Pulse Rate 88 Respiratory 10 L Rate Respiratory Rate [Abdomen] Blood Pressure 127/88 O2 Sat by Pulse 100 Oximetry General appearance: Present: no acute distress, well-nourished - EENT Eyes: PERRL, EOM intact ENT: hearing intact, clear oral mucosa Ears: bilateral: normal - Neck Neck: supple, normal ROM - Respiratory Respiratory effort: normal Respiratory: bilateral: CTA - Breasts Breasts: normal - Cardiovascular Rhythm: regular Heart Sounds: Present: S1 & S2. Absent: gallop, rub Extremities: pulses intact, No edema, normal color, Full ROM - Gastrointestinal General gastrointestinal: Present: soft, non-tender, non-distended, normal bowel sounds - Genitourinary Female genitourinary: normal - Integumentary Integumentary: clear, warm, dry - Musculoskeletal Musculoskeletal: 1, strength equal bilaterally - Neurologic Neurologic: moves all extremities - Psychiatric Psychiatric: memory intact, appropriate mood/affect, intact judgment & insight - Labs CBC & Chem 7: 04/13/20 03:12 04/14/20 04:10 Labs: Abnormal lab results 04/13/20 04/13/20 04/13/20 Range/Units 00:54 01:26 03:12 MCV 100 H (79-97) fl Sodium 134 L (137-145) mmol/L Chloride 95.5 L (98-107) mmol/L Carbon Dioxide 19 L (22-30) mmol/L Creatinine (0.6-1.2) mg/dL Glucose 435 H (65-100) mg/dL POC Glucose 380 H (70-105) Calcium (8.4-10.2) mg/dL Total Protein (6.3-8.2) g/dL Albumin (3.9-5) g/dL 04/13/20 04/13/20 04/13/20 Range/Units 03:12 03:12 03:55 MCV (79-97) fl Sodium 135 L 134 L (137-145) mmol/L Chloride 97.1 L (98-107) mmol/L Carbon Dioxide 15 L 12 L (22-30) mmol/L Creatinine (0.6-1.2) mg/dL Glucose 387 H 378 H (65-100) mg/dL POC Glucose 322 H (70-105) Calcium 8.3 L (8.4-10.2) mg/dL Total Protein 6.0 L (6.3-8.2) g/dL Albumin 3.3 L (3.9-5) g/dL 04/13/20 04/13/20 04/13/20 Range/Units 05:01 06:34 07:43 MCV (79-97) fl Sodium 136 L (137-145) mmol/L Chloride (98-107) mmol/L Carbon Dioxide (22-30) mmol/L Creatinine 0.5 L (0.6-1.2) mg/dL Glucose 106 H (65-100) mg/dL POC Glucose 227 H 191 H (70-105) Calcium (8.4-10.2) mg/dL Total Protein (6.3-8.2) g/dL Albumin (3.9-5) g/dL 04/13/20 04/13/20 04/13/20 Range/Units 08:02 08:24 12:27 MCV (79-97) fl Sodium (137-145) mmol/L Chloride (98-107) mmol/L Carbon Dioxide (22-30) mmol/L Creatinine (0.6-1.2) mg/dL Glucose (65-100) mg/dL POC Glucose 134 H 113 H 214 H (70-105) Calcium (8.4-10.2) mg/dL Total Protein (6.3-8.2) g/dL Albumin (3.9-5) g/dL 04/13/20 04/13/20 04/13/20 Range/Units 13:52 18:02 18:56 MCV (79-97) fl Sodium (137-145) mmol/L Chloride (98-107) mmol/L Carbon Dioxide (22-30) mmol/L Creatinine (0.6-1.2) mg/dL Glucose (65-100) mg/dL POC Glucose 229 H 50 L 153 H (70-105) Calcium (8.4-10.2) mg/dL Total Protein (6.3-8.2) g/dL Albumin (3.9-5) g/dL
[2020-04-13] MEDS ORDERED: INSULIN GLARGINE 100 UNITS/ML SUB-Q SCH (22:00)
[2020-04-14] MEDS: D5W/0.45% NACL 1,000 ML IV SCH (03:49)
[2020-04-14] MEDS: KETOROLAC 30 MG/1 ML INJ IV PRN (04:03)
[2020-04-14 05:32] LABS: BUN/Creatinine Ratio 9; Blood Urea Nitrogen 7 mg/dL (7-17); Calcium 8.2 mg/dL (8.4-10.2); Hemolysis Index 5
[2020-04-14] MEDS: metroNIDAZOLE/NS 500 MG/100 ML 500 MG/100 ML BAG IV SCH ×2 (06:04→13:56)
[2020-04-14] MEDS: HYDROmorphone 1 MG/1 ML INJ IV PRN ×3 (06:04→13:56)
[2020-04-14] MEDS: INSULIN REGULAR, HUMAN 100 UNIT/ML 3ML VIAL SUB-Q SCH ×2 (08:40→12:40)
--- NOTE | 2020-04-14 09:23 | Progress Note ---
Assessment and Plan 29 y/o female with DKA, but secondary to multifactorial issues including endometriosis and colitis. 1. No further critical care issues. 2. Will sign off, call if concerns. Subjective Date of service: 04/14/20 Interval history: Called by ICU charge that patient's GAP had closed yesterday after I left, transitioned to sub q insulin and fed and sent to floor. No pulmonary issues. Objective - Constitutional Vitals: Vital Signs - 12hr 04/13/20 04/13/20 04/14/20 21:29 23:21 00:00 Temperature 98.5 F Pulse Rate 89 Respiratory 20 18 Rate Blood Pressure 115/78 O2 Sat by Pulse 100 98 Oximetry 04/14/20 04/14/20 04/14/20 04:18 04:33 06:04 Temperature 98.2 F Pulse Rate 95 H Respiratory 18 18 20 Rate Blood Pressure 129/81 O2 Sat by Pulse 100 Oximetry 04/14/20 06:34 Temperature Pulse Rate Respiratory 18 Rate Blood Pressure O2 Sat by Pulse Oximetry - Labs CBC & Chem 7: 04/13/20 03:12 04/14/20 04:10 Labs: Abnormal lab results 04/13/20 04/13/20 04/13/20 Range/Units 08:02 12:27 13:52 Sodium (137-145) mmol/L Chloride (98-107) mmol/L Glucose (65-100) mg/dL POC Glucose 134 H 214 H 229 H (70-105) Calcium (8.4-10.2) mg/dL 04/13/20 04/13/20 04/13/20 Range/Units 18:02 18:56 21:48 Sodium (137-145) mmol/L Chloride (98-107) mmol/L Glucose (65-100) mg/dL POC Glucose 50 L 153 H 228 H (70-105) Calcium (8.4-10.2) mg/dL 04/14/20 04/14/20 Range/Units 04:10 07:58 Sodium 133 L (137-145) mmol/L Chloride 97.4 L (98-107) mmol/L Glucose 374 H (65-100) mg/dL POC Glucose 250 H (70-105) Calcium 8.2 L (8.4-10.2) mg/dL Medications & Allergies - Medications Allergies/Adverse Reactions: Allergies No Known Allergies Allergy (Unverified 04/12/20 09:55) Home Medications: Home Medications Medication Instructions Recorded Confirmed Last Taken Type HumaLOG 12 units SUB-Q HS 04/12/20 04/12/20 Unknown History Lantus VIAL See Protocol SQ QHS 04/12/20 04/14/20 Unknown History Active Medications: Generic Name Dose Route Start Last Admin Trade Name Freq PRN Reason Stop Dose Admin Dextrose 0 ml 04/13/20 00:32 04/13/20 18:16 D50w (25gm) Syringe IV 20 ml Q30MIN PRN Administration Hypoglycemia Protocol Heparin Sodium (Porcine) 5,000 unit 04/12/20 22:00 04/13/20 23:00 Heparin SUB-Q 5,000 unit Q12HR JONY Administration Hydromorphone HCl 0.5 mg 04/12/20 19:35 04/14/20 06:04 Dilaudid IV 0.5 mg Q3H PRN Administration Pain , Severe (7-10) Sodium Chloride 1,000 mls @ 125 mls/hr 04/12/20 19:45 04/12/20 22:34 Nacl 0.9% 1000 Ml IV 125 mls/hr DIRECT JONY Administration Dextrose/Sodium Chloride 1,000 mls @ 125 mls/hr 04/13/20 05:00 04/14/20 03:49 D5/0.45ns IV 125 mls/hr DIRECT JONY Administration Sodium Chloride 1,000 mls @ 200 mls/hr 04/13/20 07:37 Nacl 0.9% 1000 Ml IV DIRECT JONY Levofloxacin/Dextrose 500 mg in 100 mls @ 100 mls/hr 04/13/20 10:00 04/13/20 10:50 Levaquin 500mg/100ml IV 100 mls/hr Q24HR JONY Administration Protocol Metronidazole 500 mg in 100 mls @ 100 mls/hr 04/13/20 14:00 04/14/20 06:04 Flagyl 500 Mg/100 Ml IV 100 mls/hr Q8HR JONY Administration Protocol Insulin Glargine 12 units 04/13/20 22:00 04/13/20 22:45 Lantus SUB-Q 12 units QHS JONY Administration Insulin Human Regular 0 unit 04/13/20 16:30 04/14/20 08:40 Humulin R SUB-Q 6 unit ACHS JONY Administration Protocol Ketorolac Tromethamine 15 mg 04/13/20 08:57 04/14/20 04:03 Toradol IV 04/18/20 08:56 15 mg Q6H PRN Administration Pain, Mild (1-3) Metoclopramide HCl 10 mg 04/12/20 19:35 Reglan IV Q6H PRN Nausea And Vomiting Ondansetron HCl 4 mg 04/12/20 19:35 04/13/20 20:14 Zofran IV 4 mg Q8H PRN Administration Nausea And Vomiting Sodium Chloride 10 ml 04/12/20 22:00 04/13/20 23:02 Sodium Chloride Flush Syringe 10 Ml IV 10 ml BID JONY Administration Sodium Chloride 10 ml 04/12/20 19:35 Sodium Chloride Flush Syringe 10 Ml IV PRN PRN LINE FLUSH
[2020-04-14] MEDS: HEPARIN 5,000 UNIT/1 ML VIAL SUB-Q SCH ×2 (09:45→09:59)
[2020-04-14 13:18] VITALS: BP 104/73
--- NOTE | 2020-04-14 15:33 | Discharge Summary ---
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 Intermittent in nature. Colicky nature. No diarrhea. Also lower abdominal pain. Patient also had nausea and vomiting vomiting x2. No fever. No diarrhea. No exposure to coronavirus. Patient says that she is compliant with insulin but has not been compliant because of the not eating and being in abdominal pain. (1) DKA (diabetic ketoacidoses) Current Visit: Yes Status: Acute Qualifiers: Diabetes mellitus type: type 1 Diabetes mellitus complication detail: without coma Qualified Code(s): E10.10 - Type 1 diabetes mellitus with ketoacidosis without coma Plan to address problem: IV insulin drip and DKA protocol (2) Colitis Current Visit: Yes Status: Acute Plan to address problem: Mild Flagyl 3 times daily for 1 week (3) Left ovarian cyst Current Visit: Yes Status: Chronic Plan to address problem: Observation Follow-up with ORDNANCE TECHNICIAN Disposition: - TO HOME OR SELFCARE - Discharge Diagnoses (1) DKA (diabetic ketoacidoses) Status: Acute Qualifiers: Diabetes mellitus type: type 1 Diabetes mellitus complication detail: without coma Qualified Code(s): E10.10 - Type 1 diabetes mellitus with ketoacidosis without coma (2) Colitis Status: Acute (3) Left ovarian cyst Status: Chronic (4) DVT prophylaxis Status: Acute Core Measure Documentation - Palliative Care Palliative Care/ Comfort Measures: Not Applicable - Core Measures Any of the following diagnoses?: none Exam - Constitutional Vitals: Temp Pulse Resp BP Pulse Ox 99.0 F 90 20 104/73 100 04/14/20 11:25 04/14/20 11:25 04/14/20 11:25 04/14/20 11:25 04/14/20 11:25 General appearance: Present: no acute distress, well-nourished - EENT Eyes: Present: PERRL ENT: hearing intact, clear oral mucosa - Neck Neck: Present: supple, normal ROM - Respiratory Respiratory effort: normal Respiratory: bilateral: CTA - Cardiovascular Heart rate: 78 Rhythm: regular Heart Sounds: Present: S1 & S2. Absent: rub, click - Extremities Extremities: pulses symmetrical, No edema Peripheral Pulses: within normal limits - Abdominal General gastrointestinal: Present: soft, non-tender, non-distended, normal bowel sounds Female genitourinary: Present: normal - Rectal Rectal Exam: deferred - Integumentary Integumentary: Present: clear, warm, dry - Musculoskeletal Musculoskeletal: gait normal, strength equal bilaterally - Psychiatric Psychiatric: appropriate mood/affect, intact judgment & insight - Neurologic Neurologic: CNII-XII intact, moves all extremities - Allied Health Allied health notes reviewed: nursing, case management Plan Activity: no restrictions Diet: diabetic Follow up with: PRIMARY CAREMD [Primary Care Provider] - 2-3 Days DEVIN LOTT MD [Staff Physician] - 7 Days DYLON THURMAN MD [Staff Physician] - 7 Days
[2020-04-14] MEDS ORDERED: oxyCODONE /ACETAMINOPHEN 5-325MG TAB PO ONE (16:32)
[2020-04-14] MEDS ORDERED: NEOMY 3.5 MG/BACIT 400 UNITS/POLY B 5000 UNITS/GM OINT PACKET TP ONE (17:08)
== END 2020-04-14 17:35 | disposition home or self-care (01) | DRG 639 ==
LOC: ED 09:33 → 3A 19:35 → CC1 04-13 01:13 → OBSVTOIN 04-13 14:28 → 3A 04-13 21:26
PROVIDERS: ADMIT Internal Medicine; ATTEND Internal Medicine
PROC: 06HY33Z Insertion of Infusion Device into Lower Vein, Percutaneous Approach (ICD-10-PCS; principal; 2020-04-13)
DX: E10.10 Type 1 diabetes mellitus with ketoacidosis without coma (principal); K52.9 Noninfective gastroenteritis and colitis, unspecified; R16.1 Splenomegaly, not elsewhere classified; N83.202 Unspecified ovarian cyst, left side; N80.9 Endometriosis, unspecified; Z90.49 Acquired absence of other specified parts of digestive tract; Z82.49 Family history of ischemic heart disease and other diseases of the circulatory system
CPT/HCPCS: 36415; 74176; 76830; 76856; 80048; 80053; 81001; 82805; 82962; 83036; 83690; 83735; 84100; 84703; 85025; 96365; 96368; 96375; 96376; G0378; A6250; J1170; J1644; J1815; J1885; J1956; J2270; J2405; J7030

== ENCOUNTER 2020-04-16 17:47 | Emergency (ER) | payer SELFPAY ==
[2020-04-16] MEDS ORDERED: ONDANSETRON 4 MG ODT TAB PO ONE ×2 (18:21→19:20)
[2020-04-16] MEDS ORDERED: oxyCODONE /ACETAMINOPHEN 5-325MG TAB PO ONE ×2 (18:21→19:20)
[2020-04-16 18:22] LABS: Basophils % (Auto) 0.4 % (0.0-1.8); Eosinophils # (Auto) 0.1 K/mm3 (0.0-0.4); Eosinophils % (Auto) 0.8 % (0.0-4.3); Hematocrit 44.1 % (30.3-42.9); Hemoglobin 14.4 gm/dl (10.1-14.3); Lymphocytes % (Auto) 24.6 % (13.4-35.0); Mean Corpuscular HGB Conc 33 % (30-34); Mean Corpuscular Volume 94 fl (79-97); Monocytes # (Auto) 0.6 K/mm3 (0.0-0.8); Platelet Count 295 K/mm3 (140-440); Red Blood Count 4.71 M/mm3 (3.65-5.03); Red Cell Distribution Width 15.1 % (13.2-15.2)
[2020-04-16 18:46] LABS: Alanine Aminotransferase 22 units/L (7-56); Albumin 4.4 g/dL (3.9-5); BUN/Creatinine Ratio 10; Blood Urea Nitrogen 5 mg/dL (7-17); Calcium 9.8 mg/dL (8.4-10.2); Hemolysis Index 30
[2020-04-16] MEDS ORDERED: KETOROLAC 30 MG/1 ML INJ IM ONE (19:20)
--- NOTE | 2020-04-16 19:27 | Emergency Department Report ---
ED Abdominal Pain HPI - General Chief Complaint: Abdominal Pain Stated Complaint: ABD PAIN PUI?: No Time Seen by Provider: 04/16/20 18:14 Source: patient Mode of arrival: Ambulatory Limitations: No Limitations - History of Present Illness Initial Comments: CC: "abdominal pain" HPI: This is a 29-year-old female who presents with lower abdominal pain extending to suprapubic region for the last 4 hours since 2 PM. For the last 9 months she has had similar pain. Her room designer suspects endometriosis. She was recently evaluated and discharged from this hospital. She was diagnosed with DKA, colitis and ovarian cyst. She was unable to fill prescriptions for tramadol and metronidazole due to Medicaid insurance. She is required to have her prescription filled at a particular [facility] near her home. She decided to stay in [facility] to be close to her sister while she is recovering. Patient has sharp moderately severe left lower quadrant and suprapubic pain which is typical for pain she has had for the past several months. The pain does not change with movement. She denies fever. She has nausea without vomi ting. Complaint: abdominal pain -: Gradual, hour(s) (4 hours prior ) Location: suprapubic Radiation: LLQ Severity: moderate Severity scale (0 -10): 8 Quality: sharp Consistency: constant Improves With: nothing Worsens With: nothing Associated Symptoms: nausea. denies: vomiting - Related Data Previous Rx's Medication Instructions Recorded Last Taken Type HumaLOG 6 units SUB-Q AC #5 pen 04/14/20 Unknown Rx Lantus VIAL 15 unit SQ QHS #5 pen 04/14/20 Unknown Rx Tramadol HCl/Acetaminophen 1 each PO BID #20 tablet 04/14/20 Unknown Rx [Ultracet Tablet] metroNIDAZOLE [Flagyl] 500 mg PO Q8HR #21 tablet 04/14/20 Unknown Rx Allergies Allergy/AdvReac Type Severity Reaction Status Date / Time No Known Allergies Allergy Unverified 04/12/20 09:55 ED Review of Systems ROS: Stated complaint: ABD PAIN Other details as noted in HPI Comment: All other systems reviewed and negative Constitutional: denies: fever, malaise Respiratory: denies: cough, shortness of breath Cardiovascular: denies: chest pain Gastrointestinal: abdominal pain, nausea. denies: vomiting ED Past Medical Hx - Past Medical History Previous Medical History?: Yes Hx Congestive Heart Failure: No Hx Diabetes: Yes Hx Deep Vein Thrombosis: No Hx Asthma: No Hx COPD: No - Surgical History Past Surgical History?: Yes Hx Pacemaker: No Hx Internal Defibrillator: No Hx Cholecystectomy: Yes Additional Surgical History: C SECTION/ HERNIA - Social History Smoking Status: Never Smoker Substance Use Type: Alcohol, Marijuana - Medications Home Medications: Home Medications Medication Instructions Recorded Confirmed Last Taken Type HumaLOG 6 units SUB-Q AC #5 pen 04/14/20 Unknown Rx Lantus VIAL 15 unit SQ QHS #5 pen 04/14/20 Unknown Rx Tramadol HCl/Acetaminophen 1 each PO BID #20 tablet 04/14/20 Unknown Rx [Ultracet Tablet] metroNIDAZOLE [Flagyl] 500 mg PO Q8HR #21 tablet 04/14/20 Unknown Rx ED Physical Exam - General Limitations: No Limitations General appearance: alert, in no apparent distress - Head Head exam: Present: atraumatic, normocephalic - Eye Eye exam: Present: normal appearance - ENT ENT exam: Present: mucous membranes moist - Neck Neck exam: Present: normal inspection, full ROM - Respiratory Respiratory exam: Present: normal lung sounds bilaterally. Absent: respiratory distress, wheezes, rales, rhonchi - Cardiovascular Cardiovascular Exam: Present: regular rate, normal rhythm, normal heart sounds. Absent: systolic murmur, diastolic murmur, rubs, gallop - GI/Abdominal GI/Abdominal exam: Present: soft, normal bowel sounds. Absent: distended, tenderness, guarding, rebound - Extremities Exam Extremities exam: Present: normal inspection - Neurological Exam Neurological exam: Present: alert, oriented X3 - Psychiatric Psychiatric exam: Present: normal affect, normal mood - Skin Skin exam: Present: warm, dry, intact, normal color. Absent: rash ED Course Vital Signs 04/16/20 17:57 Temperature 98 F Pulse Rate 109 H Respiratory 16 Rate Blood Pressure 145/107 [Right] O2 Sat by Pulse 100 Oximetry ED Medical Decision Making - Lab Data Result diagrams: 04/16/20 18:07 04/16/20 18:07 Laboratory Results - last 24 hr 04/16/20 04/16/20 04/16/20 18:07 18:07 18:07 WBC 8.2 RBC 4.71 Hgb 14.4 H Hct 44.1 H MCV 94 MCH 31 MCHC 33 RDW 15.1 Plt Count 295 Lymph % (Auto) 24.6 [place] % (Auto) 7.0 Eos % (Auto) 0.8 Baso % (Auto) 0.4 Lymph # 2.0 [place] # 0.6 Eos # 0.1 Baso # 0.0 Seg Neutrophils % 67.2 Seg Neutrophils # 5.5 Sodium 140 D Potassium 3.5 L Chloride 103.6 Carbon Dioxide 22 Anion Gap 18 BUN 5 L Creatinine 0.5 L Estimated GFR > 60 BUN/Creatinine Ratio 10 Glucose 46 L POC Glucose Calcium 9.8 D Total Bilirubin 0.30 AST 30 ALT 22 Alkaline Phosphatase 91 Total Protein 7.9 D Albumin 4.4 Albumin/Globulin Ratio 1.3 HCG, Qual Negative 04/16/20 18:10 WBC RBC Hgb Hct MCV MCH MCHC RDW Plt Count Lymph % (Auto) [place] % (Auto) Eos % (Auto) Baso % (Auto) Lymph # [place] # Eos # Baso # Seg Neutrophils % Seg Neutrophils # Sodium Potassium Chloride Carbon Dioxide Anion Gap BUN Creatinine Estimated GFR BUN/Creatinine Ratio Glucose POC Glucose 57 L Calcium Total Bilirubin AST ALT Alkaline Phosphatase Total Protein Albumin Albumin/Globulin Ratio HCG, Qual - Medical Decision Making 1. Lower abdominal pain history of ovarian cyst, history of colitis. No fever or abdominal tenderness to suggest peritonitis. I have reviewed ultrasound report on recent evaluation. Patient has 2.9 cm ovarian cyst. I do not suspect ovarian torsion at this time. Endometriosis is a consideration considering the chronicity of patient's symptoms. She is followed by room designer and brake drum lathe operator at [facility]. 2. Hypoglycemia noted on chemistry and Accu-Chek, patient was able to tolerate apple juice. She did not exhibit any vomiting during her 2-hour observation. Patient initially refused Percocet and Zofran according to nurse report. She insisted on IV pain medicine. Patient eventually accepted p.o. Percocet and p.o. Zofran. Also provided IM ketorolac. She is discharged home. CBC chemistry within normal limits. Critical care attestation.: If time is entered above; I have spent that time in minutes in the direct care of this critically ill patient, excluding procedure time. ED Disposition Clinical Impression: Abdominal pain Disposition: [id number]-01 TO HOME OR SELFCARE Is pt being admited?: No Does the pt Need Aspirin: No Condition: Stable Instructions: Abdominal Pain (ED) Referrals: BANDAR LY MD [Staff Physician] - 3-5 Days
[2020-04-16 19:56] VITALS: BP 145/90
== END 2020-04-16 19:35 | disposition home or self-care (01) ==
LOC: ED 17:47
DX: R10.32 Left lower quadrant pain (principal); E11.9 Type 2 diabetes mellitus without complications; F12.10 Cannabis abuse, uncomplicated; Z90.49 Acquired absence of other specified parts of digestive tract; Z98.890 Other specified postprocedural states; Z79.899 Other long term (current) drug therapy
CPT/HCPCS: 36415; 80053; 82962; 84703; 85025; 96372; 99283; J1885; Q0162